=== PATIENT | female | born 1985 | race Caucasian/White ===

== ENCOUNTER 2021-10-06 14:48 | Emergency (ER) | payer OTHER ==
[2021-10-06 15:43] VITALS: BP 128/81; PULSE 76
[2021-10-06] MEDS ORDERED: Acetaminophen/HYDROcodone 325-5 MG Tab PO ONE (18:43)
== END 2021-10-06 19:06 | disposition home or self-care (01) ==
LOC: JD.ED 14:48
DX: S93.401A Sprain of unspecified ligament of right ankle, initial encounter (principal); S80.11XA Contusion of right lower leg, initial encounter; Z88.5 Allergy status to narcotic agent; W20.8XXA Other cause of strike by thrown, projected or falling object, initial encounter
CPT/HCPCS: 73590; 73610; 99283; A9270

== ENCOUNTER 2023-02-28 03:24 | Emergency (ER) | payer OTHER ==
[2023-02-28] MEDS ORDERED: Ondansetron 4 MG/2 ML SDV IVPUSH ONE ×2 (03:52→07:43)
[2023-02-28] MEDS ORDERED: Lactated Ringers 1,000 ML IV ONE (03:52)
[2023-02-28 04:00] LABS: BASOPHILS ABSOLUTE AUTO 0.01 K/mm3 (0.01-0.08); BASOPHILS PERCENT AUTO 0.1 % (0.1-1.2); EOSINOPHILS ABSOLUTE AUTO 0.24 K/mm3 (0.04-0.36); EOSINOPHILS PERCENT AUTO 2.7 (0.7-5.8); HEMATOCRIT 41.5 % (34.1-44.9); IMMATURE GRAN ABSOLUTE AUTO 0.01 K/mm3 (0.00-0.10); IMMATURE GRAN PERCENT AUTO 0.1 % (<=1.0); LYMPHOCYTES ABSOLUTE AUTO 1.94 K/mm3 (1.18-3.74); LYMPHOCYTES PERCENT AUTO 21.7 % (19.3-51.7); MEAN CORPUSCULAR HEMOGLOBIN 29.9 pg (25.6-32.2); MEAN CORPUSCULAR HGB CONC 33.3 g/dl (32.2-35.5); MEAN PLATELET VOLUME 11.1 fl (9.4-12.3); MONOCYTES ABSOLUTE AUTO 0.64 K/mm3 (0.24-0.36); MONOCYTES PERCENT AUTO 7.2 % (4.7-12.5); NEUTROPHILS ABSOLUTE AUTO 6.08 K/mm3 (1.56-6.13); NEUTROPHILS PERCENT AUTO 68.2 % (34.0-71.1); PLATELET COUNT,PLT 164 K/mm3 (182-369); RED BLOOD CELL COUNT 4.61 M/mm3 (3.98-5.22); WHITE BLOOD CELL COUNT,WBC 8.92 K/mm3 (3.98-10.04)
[2023-02-28 04:03] LABS: HEMOGLOBIN 13.8 gm/dl (11.2-15.7)
[2023-02-28 04:12] LABS: ALBUMIN 3.5 g/dl (3.4-5.0); BUN/CREATININE RATIO 15.6 (14-18); CALCIUM 7.9 mg/dL (8.5-10.1); POTASSIUM,K 3.3 mEq/L (3.5-5.1)
[2023-02-28 04:27] LABS: ANION GAP 12.3 (5-15); BILIRUBIN TOTAL 0.4 mg/dL (0.2-1.0); CREATININE 0.9 mg/dL (0.55-1.02); EST CRCL DRUG DOSING (CG) 70.11 mL/min
[2023-02-28 04:39] LABS: PROTEIN TOTAL,TP 7.1 g/dl (6.4-8.2)
[2023-02-28] MEDS ORDERED: Morphine 2 MG/ML SYRINGE IVPUSH ONE ×3 (04:41→07:00)
[2023-02-28] MEDS ORDERED: Lactated Ringers 1,000 ML IV SCH (05:45)
[2023-02-28] MEDS ORDERED: Iopamidol 612 MG/ML 100 ML Bottle IVPUSH ONE (07:01)
[2023-02-28 07:43] LABS: APPEARANCE,URINE CLEAR (Clear); BILIRUBIN,URINE NEGATIVE (Negative); COLOR,URINE YELLOW (Yellow); GLUCOSE,URINE NEGATIVE (Negative); KETONES,URINE 1+ (Negative); LEUKOCYTE ESTERASE,URINE NEGATIVE (Negative); NITRITE,URINE NEGATIVE (Negative); OCCULT BLOOD,URINE NEGATIVE (Negative); PROTEIN,URINE NEGATIVE (Negative); UROBILINOGEN,URINE 0.2 (0.2-1.0)
[2023-02-28] MEDS ORDERED: HYDROmorphone 0.5 MG/0.5 ML Syringe IVPUSH ONE (08:51)
[2023-02-28] MEDS ORDERED: HYDROmorphone 1 MG/ML Syringe IVPUSH ONE (10:45)
[2023-02-28 11:57] VITALS: BP 137/79; PULSE 98
== END 2023-02-28 11:57 | disposition home or self-care (01) ==
LOC: JD.ED 03:24
DX: K52.9 Noninfective gastroenteritis and colitis, unspecified (principal); J02.0 Streptococcal pharyngitis; Z88.8 Allergy status to other drugs, medicaments and biological substances; Z20.822 Contact with and (suspected) exposure to COVID-19
CPT/HCPCS: 36415; 74177; 80053; 81003; 81025; 83690; 84703; 85025; 87635; 87651; 96361; 96374; 96375; 96376; 99284; J1170; J2270; J2405; J7120; Q9967; U0002